=== PATIENT | male | born 1995 | race Caucasian/White ===

== ENCOUNTER 2020-04-01 07:25 | Emergency (ER) | payer BC ==
[~2020-04-01] VITALS: Ht 185.4 cm; Wt 111.4 kg
[2020-04-01 08:16] LABS: BASOPHILS % (AUTO) 0.4 % (0-1); EOSINOPHILS # (AUTO) 0.1 X10'3 (0-0.9); EOSINOPHILS % (AUTO) 1.5 % (0-6); HEMATOCRIT 45.2 % (42.0-52.0); HEMOGLOBIN 15.7 g/dl (14.0-17.9); LYMPHOCYTES # (AUTO) 1.7 X10'3 (1.1-4.8); LYMPHOCYTES % (AUTO) 45.9 % (21-51); MEAN CORPUSCULAR HEMOGLOBIN 30.2 PG (27.0-31.0); MEAN CORPUSCULAR HGB CONC 34.8 g/dL (33.0-36.5); MEAN CORPUSCULAR VOLUME 86.9 FL (78-98); MEAN PLATELET VOLUME 8.4 FL (7.4-10.4); MONOCYTES # (AUTO) 0.3 X10'3 (0-0.9); MONOCYTES % (AUTO) 7.4 % (2-12); NEUTROPHILS # (AUTO) 1.7 X10'3 (1.8-7.7); NEUTROPHILS % (AUTO) 44.8 % (42-75); PLATELET COUNT 198 X10'3 (140-440); RED CELL DISTRIBUTION WIDTH 12.5 % (11.5-14.5); WHITE BLOOD COUNT 3.8 X10'3 (4.5-11.0)
[2020-04-01 08:22] LABS: ALANINE AMINOTRANSFERASE 83 U/L (12-78); ALBUMIN 4.7 G/DL (3.4-5.0); ALBUMIN/GLOBULIN RATIO 1.4 (1.1-1.5); ALKALINE PHOSPHATASE 88 IU/L (46-116); ANION GAP 10 (8-16); ASPARTATE AMINO TRANSFERASE 45 U/L (10-37); BILIRUBIN,TOTAL 0.6 MG/DL (0.1-1.0); BLOOD UREA NITROGEN 14 MG/DL (7-18); BUN/CREATININE RATIO 11.7 (5.4-32.0); CALCIUM 9.4 MG/DL (8.5-10.1); CHLORIDE 106 MMOL/L (99-107); GLUCOSE 109 MG/DL (70-104); SODIUM 145 MMOL/L (135-145); TOTAL CARBON DIOXIDE 28.6 MMOL/L (24-32); eGFR 73 ML/MIN
[2020-04-01 08:58] VITALS: BP 119/86
== END 2020-04-01 09:00 | disposition home or self-care (01) ==
LOC: ER 07:26
DX: R00.2 Palpitations (principal)
CPT/HCPCS: 36415; 71045; 80053; 85025; 93005; 99285

== ENCOUNTER 2024-11-21 19:26 | Inpatient (IN) | payer BC ==
[~2024-11-21] VITALS: Ht 188 cm; Wt 106.8 kg
[2024-11-21 20:03] LABS: BILIRUBIN,URINE NEGATIVE (Neg); CLARITY,URINE CLEAR (Clear); COLOR,URINE YELLOW (Yellow); GLUCOSE, URINE NEGATIVE (Neg); KETONES,URINE NEGATIVE (Neg); LEUKOCYTE ESTERASE ,URINE NEGATIVE (Neg); NITRITES, URINE NEGATIVE (Neg); OCCULT BLOOD,URINE NEGATIVE (Neg); PROTEIN,URINE NEGATIVE (Neg); UROBILINOGEN,URINE 0.2 E.U/dL (0.2-1.0)
[2024-11-21 20:04] LABS: BASOPHILS % (AUTO) 0.3 % (0-1); EOSINOPHILS % (AUTO) 0.4 % (0-6); HEMATOCRIT 44.1 % (42.0-52.0); HEMOGLOBIN 15.4 g/dl (14.0-17.9); LYMPHOCYTES # (AUTO) 1.3 X10'3 (1.1-4.8); LYMPHOCYTES % (AUTO) 11.2 % (21-51); MEAN CORPUSCULAR HEMOGLOBIN 30.7 PG (27.0-31.0); MEAN CORPUSCULAR HGB CONC 34.9 g/dL (33.0-36.5); MEAN CORPUSCULAR VOLUME 87.8 FL (78-98); MEAN PLATELET VOLUME 8.4 FL (7.4-10.4); MONOCYTES # (AUTO) 0.7 X10'3 (0-0.9); NEUTROPHILS # (AUTO) 9.6 X10'3 (1.8-7.7); NEUTROPHILS % (AUTO) 82.1 % (42-75); PLATELET COUNT 202 X10'3 (140-440); RED BLOOD COUNT 5.03 X10'6 (4.70-6.10); RED CELL DISTRIBUTION WIDTH 11.9 % (11.5-14.5); WHITE BLOOD COUNT 11.7 X10'3 (4.5-11.0)
[2024-11-21 20:14] LABS: UA COLLECTION TYPE CLN CATCH MIDSTREAM
[2024-11-21 20:18] LABS: ALANINE AMINOTRANSFERASE 59 U/L (12-78); ALBUMIN 4.5 G/DL (3.4-5.0); ALBUMIN/GLOBULIN RATIO 1.3 (1.1-1.5); ALKALINE PHOSPHATASE 91 IU/L (46-116); ANION GAP 6 (8-16); ASPARTATE AMINO TRANSFERASE 22 U/L (10-37); BILIRUBIN,TOTAL 0.7 MG/DL (0.1-1.0); BLOOD UREA NITROGEN 14 MG/DL (7-18); BUN/CREATININE RATIO 15.1 (10.0-20.0); CALCIUM 9.3 MG/DL (8.5-10.1); CHLORIDE 102 MMOL/L (99-107); CREATININE 0.93 MG/DL (0.60-1.10); GLUCOSE 99 MG/DL (70-104); LIPASE 31 U/L (16-77); POTASSIUM 4.1 MMOL/L (3.5-5.1); SODIUM 140 MMOL/L (135-145); TOTAL CARBON DIOXIDE 32.1 MMOL/L (24-32); TOTAL PROTEIN 7.9 G/DL (6.4-8.2); eCRCL 135 ML/MIN; eGFR > 90 ML/MIN
[2024-11-21] MEDS ORDERED: iohexol 300mg/ml 100ml inj. ONE (21:07)
[2024-11-21] MEDS ORDERED: metroNIDAZOLE-Flagyl 500mg/NS 100 ML IV STA (22:29)
[2024-11-21] MEDS ORDERED: CefTRIAXone 2gm/D5W 50ml BAG 50 ML IV ONE (22:30)
[2024-11-21] MEDS ORDERED: LOSA100T58 PO (22:47)
[2024-11-21] MEDS: ringers solution, lacted 1,000 ML IV ONE (22:51)
[2024-11-21] MEDS: piperacillin/tazo 4.5gm/100ml 100 ML IV ONE (22:59)
[2024-11-21] MEDS ORDERED: magnesium Cl slow-release 64mg tablet PO PRN (23:25)
[2024-11-21] MEDS ORDERED: magnesium sulf-water 4G/100mL 100 ML IV PRN (23:25)
[2024-11-21] MEDS ORDERED: potassium Cl 20 mEq SR tablet PO PRN ×2 (23:25)
[2024-11-21] MEDS ORDERED: magnesium hydroxide 30ml (MOM) UD suspension PO PRN (23:25)
[2024-11-21] MEDS ORDERED: ondansetron/PF 4mg/2ml inj IV PRN (23:25)
[2024-11-21] MEDS ORDERED: potassium Cl 40MEQ/1/2NS 520ml 520 ML IV PRN (23:25)
[2024-11-21] MEDS ORDERED: magnesium sulf-water 2g/50mL 50 ML IV PRN (23:25)
[2024-11-21] MEDS ORDERED: mag hydrox/Alum hydrox/simeth 30ml oral suspension PO PRN (23:25)
[2024-11-21] MEDS ORDERED: acetaminophen 325mg tablet PO PRN (23:25)
[2024-11-21] MEDS ORDERED: morphine 2 MG/ML inj. syringe IV PRN (23:25)
[2024-11-21 23:57] LABS: APTT 27 SECONDS (22-32); INR 1.1 INR
[2024-11-22] VITALS (10 sets, daily range): BP systolic 113–131; BP diastolic 56–89; PULSE 51–69; RESP 10–17; TEMP 98.1; O2SAT 96–100
[2024-11-22] MEDS: normal saline 1000ml 1,000 ML IV SCH (01:42)
[2024-11-22 03:27] LABS: BASOPHILS % (AUTO) 0.3 % (0-1); EOSINOPHILS % (AUTO) 0.3 % (0-6); HEMATOCRIT 38.4 % (42.0-52.0); HEMOGLOBIN 13.7 g/dl (14.0-17.9); LYMPHOCYTES # (AUTO) 1.6 X10'3 (1.1-4.8); LYMPHOCYTES % (AUTO) 16.9 % (21-51); MEAN CORPUSCULAR HEMOGLOBIN 31.3 PG (27.0-31.0); MEAN CORPUSCULAR HGB CONC 35.8 g/dL (33.0-36.5); MEAN CORPUSCULAR VOLUME 87.3 FL (78-98); MEAN PLATELET VOLUME 8.3 FL (7.4-10.4); MONOCYTES # (AUTO) 0.7 X10'3 (0-0.9); MONOCYTES % (AUTO) 6.7 % (2-12); NEUTROPHILS # (AUTO) 7.4 X10'3 (1.8-7.7); NEUTROPHILS % (AUTO) 75.8 % (42-75); PLATELET COUNT 162 X10'3 (140-440); RED BLOOD COUNT 4.39 X10'6 (4.70-6.10); RED CELL DISTRIBUTION WIDTH 12.3 % (11.5-14.5); WHITE BLOOD COUNT 9.8 X10'3 (4.5-11.0)
[2024-11-22 03:41] LABS: ALANINE AMINOTRANSFERASE 52 U/L (12-78); ALBUMIN 3.7 G/DL (3.4-5.0); ALBUMIN/GLOBULIN RATIO 1.2 (1.1-1.5); ALKALINE PHOSPHATASE 78 IU/L (46-116); ANION GAP 4 (8-16); ASPARTATE AMINO TRANSFERASE 22 U/L (10-37); BILIRUBIN,TOTAL 1.5 MG/DL (0.1-1.0); BLOOD UREA NITROGEN 11 MG/DL (7-18); CALCIUM 9.1 MG/DL (8.5-10.1); CHLORIDE 104 MMOL/L (99-107); GLUCOSE 114 MG/DL (70-104); MAGNESIUM 1.9 MG/DL (1.5-2.4); POTASSIUM 4.1 MMOL/L (3.5-5.1); SODIUM 139 MMOL/L (135-145); TOTAL CARBON DIOXIDE 30.8 MMOL/L (24-32); TOTAL PROTEIN 6.8 G/DL (6.4-8.2); eCRCL 126 ML/MIN; eGFR 88 ML/MIN
[2024-11-22] MEDS: K and/or MAG REPLACEMENT MC SCH (08:00)
[2024-11-22] MEDS: docusate sod 100mg capsule PO SCH (08:00)
[2024-11-22] MEDS: piperacillin/tazo 3.375gm/50ml 50 ML IV SCH (08:15)
[2024-11-22] MEDS ORDERED: BUPIVAcaine/PF 2.5mg/ml (0.25%) 10ml vial ONE ×2 (13:02→13:12)
[2024-11-22] MEDS ORDERED: LIDOcaine 1% (10mg/ml)w/preservative inj. 20ml MDV ONE (13:12)
[2024-11-22] MEDS ORDERED: sevoflurane 250ml liquid IH ONE (13:22)
[2024-11-22] MEDS ORDERED: midazolam 1 mg/ML 2ml injection ONE (13:24)
[2024-11-22] MEDS ORDERED: fentaNYL/PF 50MCG/1 ML 2ML syringe ONE (13:24)
[2024-11-22] MEDS ORDERED: propofol inj 20 ML IV ONE (13:25)
[2024-11-22] MEDS: BUPIVAcaine/PF 2.5 mg/ml (0.25%) 30ml vial IJ ONE (13:36)
[2024-11-22] MEDS ORDERED: ceFAZolin 1000mg inj ONE ×2 (13:40)
[2024-11-22] MEDS ORDERED: rocuronium 10mg/ml inj IV ONE (13:41)
[2024-11-22] MEDS ORDERED: neostigmine methylsulfate 1 MG/ML 10ml vial ONE (14:14)
[2024-11-22] MEDS ORDERED: glycopyrrolate 0.2mg/ml inj ONE (14:15)
[2024-11-22] MEDS ORDERED: ondansetron/PF 4mg/2ml inj ONE (14:17)
[2024-11-22] MEDS ORDERED: dexamethasone sod phosphate 4mg/ml inj. ONE (14:18)
[2024-11-22] MEDS ORDERED: oxyCODONE/APAP 5-325mg tablet PO PRN (14:45)
[2024-11-22] MEDS ORDERED: ketorolac trometh 15mg/ml vial 15 MG/ML ML IV ONE (14:45)
[2024-11-22] MEDS ORDERED: meperidine/PF 25mg/ml syringe IV PRN ×3 (14:55)
[2024-11-22] MEDS ORDERED: morphine 4 MG/ML inj SYRINge IV PRN (14:55)
[2024-11-22] MEDS ORDERED: proCHLORperazine 10 MG/2 ml inj IV PRN (14:55)
[2024-11-22] MEDS ORDERED: ondansetron/PF 4mg/2ml inj IV PRN (14:55)
[2024-11-22] MEDS ORDERED: morphine 2 MG/ML inj. syringe IV PRN (14:55)
[2024-11-22] MEDS ORDERED: ringers solution, lacted 1,000 ML IV SCH (14:55)
== END 2024-11-22 16:40 | disposition home or self-care (01) | DRG 399 ==
LOC: ER 19:26 → ED HOLD 23:28 → UNDOADMIN 23:28 → PACU 11-22 12:40 → ED HOLD 11-22 12:40 → PAS IN 11-22 12:40 → UNDODISIN 11-22 16:40
PROVIDERS: ADMIT Surgery Surgical Critical Care; ATTEND Family Medicine
PROC: 0WQF4ZZ Repair Abdominal Wall, Percutaneous Endoscopic Approach (ICD-10-PCS; 2024-11-22)
PROC: 8E0W4CZ Robotic Assisted Procedure of Trunk Region, Percutaneous Endoscopic Approach (ICD-10-PCS; 2024-11-22)
PROC: 0DTJ4ZZ Resection of Appendix, Percutaneous Endoscopic Approach (ICD-10-PCS; principal; 2024-11-22 13:22)
DX: K35.30 Acute appendicitis with localized peritonitis, without perforation or gangrene (principal); I10 Essential (primary) hypertension; I48.91 Unspecified atrial fibrillation; K42.9 Umbilical hernia without obstruction or gangrene
CPT/HCPCS: 99285; Z7506; Z7508; 36415; 74177; 80053; 81003; 82948; 83690; 83735; 85025; 85610; 85730; 86885; 86900; 86901; 93005; A4215; A4618; G0378; J0690; J1100; J2250; J2405; J2543; J2704; J2710; J3010; J3490; J7030; J7120; Q9967